=== PATIENT | female | born 1950 | race Caucasian/White ===

== ENCOUNTER → 2022-04-05 10:34 | Outpatient (CLI) | payer MEDICARE, SELFPAY ==
--- NOTE | 2022-04-05 | DI.MG.S_ITS ---
BILATERAL DIGITAL SCREENING MAMMOGRAM 3D/2D WITH CAD: 04/05/2022 CLINICAL: Routine screening. Family history of breast cancer. Comparison is made to exams dated: 04/17/2017 mammogram, 10/30/2015 mammogram, and 03/23/2015 mammogram - [facility]. The tissue of both breasts is heterogeneously dense. This may lower the sensitivity of mammography. Current study was also evaluated with a Computer Aided Detection (CAD) system. There are possible a grouped fine heterogeneous calcifications in the left breast at 1 o'clock middle depth. These are more prominent and increased in number. No other significant masses, calcifications, or other findings are seen in either breast. IMPRESSION: INCOMPLETE: NEEDS ADDITIONAL IMAGING EVALUATION The possible grouped fine heterogeneous calcifications in the left breast are indeterminate. Diagnostic mammogram for additional views to include mediolateral and spot magnification views is recommended. This exam was interpreted at Station ID: [id number]. NOTE: For mammograms, a report in lay terms will be sent to the patient. Approximately 15% of breast malignancies will not be visualized mammographically. In the management of a palpable breast mass, a negative mammogram must not discourage biopsy of a clinically suspicious lesion. Electronically Signed By: Boni Bansal M.D. aty/:04/05/2022 11:18:55 letter sent: Additional Imaging Needed ACR BI-RADS Category 0: Incomplete 3340F
--- NOTE | 2022-04-05 | DI.US.S_ITS ---
PROCEDURE: US ABD AORTA ANEURYSM SCREEN INDICATIONS: screening for cardiovascular disorders TECHNIQUE: Real time scanning was performed of the aorta and iliac arteries, with image documentation. COMPARISON: None. FINDINGS: Aorta: Proximal aortic diameter measures 2.9 cm. Mid-aorta measures 1.9 cm. Distal aortic diameter is 1.8 cm. Iliac arteries: Right common iliac artery measures 1.2 cm. Left common iliac artery measures 1.1 cm. IMPRESSION: 1. Proximal abdominal aorta ectasia. Five year follow-up is recommended. 2. No other abdominal aortic or common iliac artery aneurysm. Dictated by: Annika Cantrell M.D. on 04/05/2022 at 13:25 Approved by: Annika Cantrell M.D. on 04/05/2022 at 13:27
== END ==
PROVIDERS: PCP Nurse Practitioner Family; Referring Provider Nurse Practitioner Family; Visit Provider Nurse Practitioner Family
DX: Z12.31 Encounter for screening mammogram for malignant neoplasm of breast (principal); Z80.3 Family history of malignant neoplasm of breast; Z13.6 Encounter for screening for cardiovascular disorders; I77.811 Abdominal aortic ectasia
CPT/HCPCS: 76706; 77063; 77067

== ENCOUNTER → 2022-07-10 13:11 | Outpatient (CLI) | payer MEDICARE, SELFPAY ==
--- NOTE | 2022-07-10 | DI.US.S_ITS ---
LIMITED ULTRASOUND OF LEFT BREAST AND AXILLA: 07/10/2022 CLINICAL: Patient returns today to evaluate asymmetries in the left breast. No prior exams were available for comparison. Color flow and real-time ultrasound of the left breast outer aspect and axilla regions were performed. Arriaga scale images of the real-time examination were reviewed. Numerous simple and mildly complicated cysts as well as a few dilated ducts. No suspicious shadowing or vascularity. IMPRESSION: PROBABLY BENIGN Left breast cysts and dilated ducts, probably benign. A follow-up mammogram and an ultrasound in 6 months is recommended to demonstrate stability. Left breast grouped calcifications also likely benign. Follow-up mammogram recommended in 6 months. This exam was interpreted at Station ID: [id number]. Electronically Signed By: Indio Patton M.D. jr/:07/10/2022 15:30:35 letter sent: Followup Recommended Ultrasound BI-RADS: 3 Probably benign
--- NOTE | 2022-07-10 | DI.MG.S_ITS ---
UNILATERAL LEFT DIGITAL DIAGNOSTIC MAMMOGRAM 3D/2D WITH ADDITIONAL VIEWS: 07/10/2022 CLINICAL: Additional evaluation requested from prior study. Comparison is made to exams dated: 04/05/2022 mammogram, 04/17/2017 mammogram, and 10/30/2015 mammogram - [facility]. The tissue of left breast is heterogeneously dense. This may lower the sensitivity of mammography. There are multiple clusters of equal density asymmetries in the left upper outer quadrant anterior and middle depth. These are more prominent on the current study due to magnification and use of tomosynthesis. They were not definitely present on the more remote exams of 2016 and 2014. There also are stable grouped fine heterogeneous calcifications in the left breast at 1 o'clock middle depth. IMPRESSION: INCOMPLETE: NEEDS ADDITIONAL IMAGING EVALUATION The multiple clusters of equal density asymmetries in the left breast anterior depth superior region seen on the mediolateral oblique view only most likely are clustered cysts and are indeterminate. An ultrasound is recommended. The stable grouped fine heterogeneous calcifications in the left breast at 1 o'clock middle depth are probably benign. A follow-up mammogram in 6 months is recommended. Based on the Tyrer Cuzick model (a risk assessment model) the patient's lifetime risk is 7.4% and her 10 year risk is 5.6%. According to the ACR, ACS, and NCCN guidelines, an annual breast MRI exam along with mammogram is recommended if the patient's lifetime risk is 20% or greater. This exam was interpreted at Station ID: [id number]. NOTE: For mammograms, a report in lay terms will be sent to the patient. Approximately 15% of breast malignancies will not be visualized mammographically. In the management of a palpable breast mass, a negative mammogram must not discourage biopsy of a clinically suspicious lesion. Electronically Signed By: Indio Patton M.D. jr/:07/10/2022 15:21:38 ACR BI-RADS Category 0: Incomplete 3340F
== END ==
PROVIDERS: PCP Nurse Practitioner Family; Referring Provider Nurse Practitioner Family; Visit Provider Nurse Practitioner Family
DX: R92.8 Other abnormal and inconclusive findings on diagnostic imaging of breast (principal); N60.42 Mammary duct ectasia of left breast; R92.1 Mammographic calcification found on diagnostic imaging of breast; N60.02 Solitary cyst of left breast; Z13.820 Encounter for screening for osteoporosis; Z78.0 Asymptomatic menopausal state; Z92.23 Personal history of estrogen therapy
CPT/HCPCS: 76642; 77065; 77080; G0279

== ENCOUNTER → 2023-04-04 11:56 | Outpatient (CLI) | payer MEDICARE, SELFPAY ==
--- NOTE | 2023-04-04 | DI.US.S_ITS ---
LIMITED ULTRASOUND OF LEFT BREAST: 04/04/2023 CLINICAL: 6 month follow up. Comparison is made to exams dated: 04/04/2023 mammogram, 07/10/2022 ultrasound, 07/10/2022 mammogram, 04/05/2022 mammogram, and 04/17/2017 mammogram - [facility]. Color flow and real-time ultrasound of the left breast were performed. Arriaga scale images of the real-time examination were reviewed. There is a stable 1 cm x 0.5 cm x 1.2 cm probable clustered microcyst in the left breast at 1 o'clock posterior depth 4 cm from the nipple. There also is a stable 0.7 cm x 0.7 cm x 0.9 cm probable clustered microcyst in the left breast at 4 o'clock posterior depth 4 cm from the nipple. The mass at 6:00 increasing in size on mammogram corresponds to a 1cm simple cyst. Other benign clustered microcysts, complicated cysts, and simple cysts are present. IMPRESSION: PROBABLY BENIGN There is a stable 1 cm x 0.5 cm x 1.2 cm probable clustered microcyst in the left breast at 1 o'clock posterior depth 4 cm from the nipple. There also is a stable 0.7 cm x 0.7 cm x 0.9 cm probable clustered microcyst in the left breast at 4 o'clock posterior depth 4 cm from the nipple. These are probably benign. The grouped calcifications described on same day mammogram is also probably benign A followup mammogram and ultrasound in 6 months is recommended. The mass at 6:00 increasing in size on mammogram corresponds to a 1cm simple cyst, benign. This exam was interpreted at Station ID: [id number]. Electronically Signed By: Manjit Smith M.D. lc/:04/04/2023 13:40:21 letter sent: Followup Recommended Ultrasound BI-RADS: 3 Probably benign
--- NOTE | 2023-04-04 | DI.MG.S_ITS ---
BILATERAL DIGITAL DIAGNOSTIC MAMMOGRAM 3D/2D: 04/04/2023 CLINICAL: Short term follow up of the left breast, due for bilateral imaging. Comparison is made to exams dated: 07/10/2022 mammogram, 04/05/2022 mammogram, 04/17/2017 mammogram, and 10/30/2015 mammogram - [facility]. Both breasts are heterogeneously dense, which may obscure small masses (category c / 51-75% glandular tissue). There is a 1 cm mass in the left breast at 6 o'clock anterior depth. This is increased in size. There also are stable grouped calcifications in the left breast at 1 o'clock middle depth. Numerous benign oval circumscribed masses are present in both breasts, waxing and waning in size over multiple comparison studies. No other significant masses, calcifications, or other findings are seen in either breast. IMPRESSION: INCOMPLETE: NEEDS ADDITIONAL IMAGING EVALUATION There is a 1 cm mass in the left breast at 6 o'clock anterior depth. This is increased in size. Ultrasound is recommended. There also are stable grouped calcifications in the left breast at 1 o'clock middle depth. Numerous benign oval circumscribed masses are present in both breasts, waxing and waning in size over multiple comparison studies. Ultrasound is recommended to followup the probable clustered microcysts/complicated cysts described on prior ultrasound. Based on the Tyrer Cuzick model (a risk assessment model) the patient's lifetime risk is 7.0% and her 10 year risk is 5.7%. According to the ACR, ACS, and NCCN guidelines, an annual breast MRI exam along with mammogram is recommended if the patient's lifetime risk is 20% or greater. This exam was interpreted at Station ID: [id number]. NOTE: For mammograms, a report in lay terms will be sent to the patient. Approximately 15% of breast malignancies will not be visualized mammographically. In the management of a palpable breast mass, a negative mammogram must not discourage biopsy of a clinically suspicious lesion. Electronically Signed By: Manjit Smith M.D. lc/:04/04/2023 13:41:02 ACR BI-RADS Category 0: Incomplete 3340F
== END ==
PROVIDERS: PCP Nurse Practitioner Family; Referring Provider Nurse Practitioner Family; Visit Provider Nurse Practitioner Family
DX: R92.8 Other abnormal and inconclusive findings on diagnostic imaging of breast (principal); N60.02 Solitary cyst of left breast; R92.1 Mammographic calcification found on diagnostic imaging of breast
CPT/HCPCS: 76642; 77066; G0279

== ENCOUNTER → 2023-10-20 13:26 | Outpatient (CLI) | payer MEDICARE, SELFPAY ==
--- NOTE | 2023-10-20 | DI.US.S_ITS ---
ULTRASOUND OF LEFT BREAST: 10/20/2023 CLINICAL: Patient returns today to evaluate two focal asymmetries in the left breast. Comparison is made to exams dated: 10/20/2023 mammogram, 04/04/2023 ultrasound, 04/04/2023 mammogram, 07/10/2022 ultrasound, 07/10/2022 mammogram, and 04/05/2022 mammogram - [facility]. Color flow and real-time ultrasound of the left breast were performed. Arriaga scale images of the real-time examination were reviewed. There is a 3 cm x 1.8 cm x 1.1 cm cluster of cysts in the left breast at 1 o'clock anterior depth 4 cm from the nipple. The previous 4:00 finding is not seen. IMPRESSION: PROBABLY BENIGN The 3 cm x 1.8 cm x 1.1 cm cluster of cysts in the 1:00 position of the left breast is probably benign, grossly stable by ultrasound to prior imaging without clear complex solid-cystic component. However, additional cysts at 1:00 now seem to have merged with the previous finding, making the overall measurement larger. This is probably benign. Recommend restarting the two year followup interval from today for this ultrasound finding. A follow-up mammogram and an ultrasound in 6 months is recommended to demonstrate stability. (Probably benign grouped calcifications in the left breast on mammogram were first identified 03/2022). This exam was interpreted at Station ID: [id number]. Electronically Signed By: Manjit Smith M.D. lc/:10/20/2023 15:05:36 letter sent: Followup Recommended Ultrasound BI-RADS: 3 Probably benign
--- NOTE | 2023-10-20 | DI.MG.S_ITS ---
UNILATERAL LEFT DIGITAL DIAGNOSTIC MAMMOGRAM 3D/2D: 10/20/2023 CLINICAL: Short term follow up. Comparison is made to exams dated: 04/04/2023 mammogram, 07/10/2022 mammogram, 04/05/2022 mammogram, and 04/17/2017 mammogram - [facility]. The left breast is heterogeneously dense, which may obscure small masses (category c / 51-75% glandular tissue). There are stable grouped calcifications in the left breast at 1 o'clock middle depth. No other significant masses or calcifications are seen in the breast. Multiple presumed benign oval circumscribed masses are present. IMPRESSION: INCOMPLETE: NEEDS ADDITIONAL IMAGING EVALUATION The stable grouped calcifications in the left breast are probably benign, first identified 03/2022. Ultrasound recommended to evaluate previous probably benign clustered cysts. Based on the Tyrer Cuzick model (a risk assessment model) the patient's lifetime risk is 7.0% and her 10 year risk is 5.7%. According to the ACR, ACS, and NCCN guidelines, an annual breast MRI exam along with mammogram is recommended if the patient's lifetime risk is 20% or greater. This exam was interpreted at Station ID: [id number]. NOTE: For mammograms, a report in lay terms will be sent to the patient. Approximately 15% of breast malignancies will not be visualized mammographically. In the management of a palpable breast mass, a negative mammogram must not discourage biopsy of a clinically suspicious lesion. Electronically Signed By: Manjit Smith M.D. lc/:10/21/2023 11:01:08 Entry: - 10/21/2023 11:01:08 ACR BI-RADS Category 0: Incomplete 3340F
== END ==
PROVIDERS: Referring Provider Nurse Practitioner; Visit Provider Nurse Practitioner
DX: R92.8 Other abnormal and inconclusive findings on diagnostic imaging of breast (principal); N63.20 Unspecified lump in the left breast, unspecified quadrant; R92.1 Mammographic calcification found on diagnostic imaging of breast; N60.02 Solitary cyst of left breast
CPT/HCPCS: 76642; 77065; G0279

== ENCOUNTER → 2024-04-09 13:04 | Outpatient (CLI) | payer MEDICARE, SELFPAY ==
--- NOTE | 2024-04-09 13:06 | DI.MG.S_ITS ---
BILATERAL DIGITAL DIAGNOSTIC MAMMOGRAM 3D/2D: 04/09/2024 CLINICAL: Patient returns for a 6 month follow up of the left breast, due for bilateral exam. Comparison is made to exams dated: 10/20/2023 mammogram, 04/04/2023 mammogram, 07/10/2022 mammogram, 04/05/2022 mammogram, and 04/17/2017 mammogram - [facility]. Both breasts are heterogeneously dense, which may obscure small masses (category c / 51-75% glandular tissue). There are stable benign grouped fine punctate calcifications in the left breast at 1 o'clock middle depth. No other significant masses, calcifications, or other findings are seen in either breast. IMPRESSION: INCOMPLETE: NEEDS ADDITIONAL IMAGING EVALUATION Left breast grouped fine and punctate calcifications demonstrate long-term stability and are benign. A targeted ultrasound is recommended to re-evaluate the cyst and will immediately follow. Based on the Tyrer Cuzick model (a risk assessment model) the patient's lifetime risk is 6.5% and her 10 year risk is 5.9%. According to the ACR, ACS, and NCCN guidelines, an annual breast MRI exam along with mammogram is recommended if the patient's lifetime risk is 20% or greater. This exam was interpreted at Station ID: [id number]. NOTE: For mammograms, a report in lay terms will be sent to the patient. Approximately 15% of breast malignancies will not be visualized mammographically. In the management of a palpable breast mass, a negative mammogram must not discourage biopsy of a clinically suspicious lesion. Electronically Signed By: Darren Stuart M.D. [facility] [place]/:04/09/2024 14:19:58 ACR BI-RADS Category 0: Incomplete 3340F
--- NOTE | 2024-04-09 13:06 | DI.US.S_ITS ---
LIMITED SECONDLOOK ULTRASOUND OF LEFT BREAST: 04/09/2024 CLINICAL: Patient returns for additional imaging over a suspected mass in the left breast. Follow up from addtional views. Additional evaluation requested from prior study. Patient returns for a 6 month follow up of the left breast. Comparison is made to exams dated: 04/09/2024 mammogram, 10/20/2023 ultrasound, 10/20/2023 mammogram, 04/04/2023 ultrasound, and 04/04/2023 mammogram - [facility]. Color flow and real-time ultrasound of the left breast 1 o'clock region were performed. Arriaga scale images of the real-time examination were reviewed. There is a stable benign 3.5 cm x 1.7 cm x 1.1 cm cluster of oval cysts in the left breast at 1 o'clock anterior depth 4 cm from the nipple. This cluster of oval cysts is anechoic and hypoechoic. This correlates with mammography findings. Color flow imaging demonstrates that there is no vascularity present. IMPRESSION: BENIGN There is no sonographic evidence of malignancy. The cluster of oval cysts in the left breast is not significantly change and is benign. Exam findings were conveyed to the patient. A 1 year screening mammogram is recommended. This exam was interpreted at Station ID: [id number]. Electronically Signed By: Darren Stuart M.D. slc/:04/09/2024 14:42:07 letter sent: Normal Exam Ultrasound BI-RADS: 2 Benign
== END ==
LOC: MAMMO 13:05
PROVIDERS: PCP Family Medicine; Referring Provider Family Medicine; Visit Provider Family Medicine
DX: R92.8 Other abnormal and inconclusive findings on diagnostic imaging of breast (principal); R92.1 Mammographic calcification found on diagnostic imaging of breast; N63.20 Unspecified lump in the left breast, unspecified quadrant; N60.02 Solitary cyst of left breast
CPT/HCPCS: 76642; 77066; G0279

== ENCOUNTER → 2025-06-17 14:13 | Outpatient (CLI) | payer OTHER, SELFPAY ==
--- NOTE | 2025-06-17 14:36 | DI.MG.S_ITS ---
Patient Name: RADAMES ROCHE date: 1950 Sex: F Attending Physician: Tj Indications: Date: 06/17/2025 16:36 At the request of: CARLOS SHANKS Procedure: MM screening mammo BI MM screening mammo BI: 06/17/2025. BI-RADS: 0 CLINICAL: 75-year old female for bilateral screening mammogram. Tyrer-Cuzick lifetime risk of 6.1%. No personal or first-degree family history of breast cancer. Current reported family history of breast cancer: maternal uncle's daughter. PRIOR EXAMS 04/09/2024, 10/20/2023, 04/04/2023, 07/10/2022. MAMMOGRAPHY TECHNIQUE: 2D and 3D (tomosynthesis) digital mammographic views obtained, with additional images as needed for full coverage. Current study was also evaluated with a Computer Aided Detection (CAD) system. DENSITY C. The breasts are heterogeneously dense, which may obscure small masses. MAMMOGRAPHY FINDINGS Right: Lower Inner Quadrant, Anterior depth: Focal asymmetry needing additional imaging evaluation. This appears increased in size compared to the previous study and may represent a cyst. Left: No suspicious mass, asymmetry, microcalcification, or other abnormality seen. IMPRESSION: Right (Asymmetry): Lower Inner Quadrant, Anterior depth * Incomplete - focal asymmetry needing additional imaging evaluation. Left * No evidence of malignancy. Continued Report - Page 2 of 2 Patient Name: RADAMES ROCHE date: 1950 Sex: F Attending Physician: Tj Indications: Date: 06/17/2025 16:36 At the request of: CARLOS SHANKS Procedure: MM screening mammo BI RECOMMENDATIONS Right: Lower Inner Quadrant, Anterior depth * Further evaluation with diagnostic mammography and diagnostic ultrasound. Ultrasound to be performed only if needed. OVERALL ASSESSMENT CATEGORY BI-RADS-0: Incomplete - Need Additional Imaging Evaluation. ELECTRONICALLY SIGNED: Swapna Salvador M.D. on 06/17/2025 at 04:36:24 PM PT Interpreting Station ID: [id number]
== END ==
LOC: MAMMO 14:14
PROVIDERS: PCP Physician Assistant; Referring Provider Physician Assistant; Visit Provider Physician Assistant
DX: Z12.31 Encounter for screening mammogram for malignant neoplasm of breast (principal); Z80.3 Family history of malignant neoplasm of breast; R92.333 Mammographic heterogeneous density, bilateral breasts
CPT/HCPCS: 77063; 77067

== ENCOUNTER → 2025-08-05 13:21 | Outpatient (CLI) | payer OTHER, SELFPAY ==
--- NOTE | 2025-08-05 13:22 | DI.US.S_ITS ---
MM diagnostic mammo unilat RT, US breast RT limited: 08/05/2025 BI-RADS: 2 CLINICAL: 75-year old female for right diagnostic mammogram and right diagnostic breast ultrasound that is a recall from screening on 06/17/2025. Tyrer-Cuzick lifetime risk of 6.1%. No personal or first-degree family history of breast cancer. Current reported family history of breast cancer: maternal uncle's daughter. PRIOR EXAMS Mammogram(s): 06/17/2025, 04/09/2024, 04/04/2023, 04/05/2022. MAMMOGRAPHY TECHNIQUE: 2D and 3D (tomosynthesis) digital mammographic views obtained, with additional images as needed for full coverage. Current study was also evaluated with a Computer Aided Detection (CAD) system. ULTRASOUND TECHNIQUE TARGETED Right Breast Ultrasound: Real-time ultrasound exam was performed focused to area of clinical and/or imaging concern. Real-time polk scale and color doppler imaging of the area of clinical interest was performed with image documentation. DENSITY Right: C. The breast is heterogeneously dense, which may obscure small masses. MAMMOGRAPHY FINDINGS Right (finding-1): Lower Inner Quadrant, Anterior depth, measuring 1.4cm: Correlating with findings on screening mammogram there is a circumscribed, oval, equal-density mass present. ULTRASOUND FINDINGS Right (finding-1): Lower at 6:00, 2 cm from nipple, measuring 1.2 x 1.4 x 0.7 cm. Previous report: Lower Inner Quadrant: Correlating with findings on mammogram, there is a simple cyst. Doppler shows no vascularity. IMPRESSION: Right * No evidence of malignancy with benign findings. RECOMMENDATIONS Bilateral * Annual screening mammography. COMMENTS: Findings and recommendations were conveyed to the patient during today's evaluation. OVERALL ASSESSMENT CATEGORY BI-RADS-2: Benign. The [employer] recommends annual screening mammography beginning at age 40 for women with average risk of breast cancer. ELECTRONICALLY SIGNED: Swapna Salvador M.D. on 08/05/2025 at 04:09:58 PM PT Interpreting Station ID: [id number]
== END ==
LOC: MAMMO 13:21
PROVIDERS: PCP Physician Assistant; Referring Provider Physician Assistant; Visit Provider Physician Assistant
DX: N63.14 Unspecified lump in the right breast, lower inner quadrant (principal); N60.01 Solitary cyst of right breast; R92.331 Mammographic heterogeneous density, right breast; Z80.3 Family history of malignant neoplasm of breast
CPT/HCPCS: 76642; 77065; G0279